=== PATIENT | male | born 1940 | race Caucasian/White ===

== ENCOUNTER 2022-04-05 10:57 | Emergency (ER) | payer MEDICARE | END 2022-04-05 13:05 | disposition home or self-care (01) | LOC: JP.ED 10:57 | DX: S00.461A Insect bite (nonvenomous) of right ear, initial encounter (principal); I10 Essential (primary) hypertension; E78.00 Pure hypercholesterolemia, unspecified; Z87.891 Personal history of nicotine dependence; Z79.899 Other long term (current) drug therapy; W57.XXXA Bitten or stung by nonvenomous insect and other nonvenomous arthropods, initial encounter | CPT/HCPCS: 99281; 99282 ==